=== PATIENT | female | born 1940 | race Caucasian/White ===

== ENCOUNTER → 2016-09-04 | Outpatient (CLI) | payer MEDICARE ==
[~2016-09-04] MED LIST: ASPI-496 PO; CALC1TAB76 PO; CETI1TAB6 PO; CHOL20002 PO; CYAN10005 PO; ESOM40CA PO; FENO54TA17 PO; FLONASE NAS; INSU100I13 SQ; MEGA RED KRILL PO; METF10002 PO; METO-99 PO; MULT-257 PO; OMNIPAQUE 350 MG/ML, 100ML BOTTLE ONE; PIOG15TA9 PO; SAXA5TAB PO; TELM40TA PO; VITAMIN K2 PO
== END | disposition home or self-care (01) ==
LOC: CVU 15:42
PROVIDERS: ATTEND Internal Medicine
DX: C91.10 Chronic lymphocytic leukemia of B-cell type not having achieved remission (principal); R59.1 Generalized enlarged lymph nodes; R16.0 Hepatomegaly, not elsewhere classified
CPT/HCPCS: 71260; 74177; 93306; Q9967

== ENCOUNTER 2016-09-18 10:51 | Day surgery (SDC) | payer MEDICARE ==
[~2016-09-18] VITALS: Ht 148.6 cm; Wt 64.5 kg
[~2016-09-18 10:51] MED LIST changes: -OMNIPAQUE 350 MG/ML, 100ML BOTTLE ONE
[2016-09-18] MEDS ORDERED: LISI-170 PO (11:56)
[2016-09-18] MEDS ORDERED: HCTZ PO (11:56)
[2016-09-18] MEDS ORDERED: SODIUM CHLORIDE 0.9% 1,000 ML IV SCH (11:57)
[2016-09-18 11:58] VITALS: BP 71/58
[2016-09-18] MEDS ORDERED: FENTANYL PF 100 MCG/2ML ONE (13:16)
[2016-09-18] MEDS ORDERED: MIDAZOLAM 1 MG/ML, 5ML ONE (13:16)
[2016-09-18] MEDS ORDERED: OXYcodone IR 5MG TABLET PO PRN (15:00)
== END 2016-09-18 18:40 | disposition home or self-care (01) ==
LOC: OUT 10:51
PROVIDERS: ATTEND Internal Medicine
DX: C91.10 Chronic lymphocytic leukemia of B-cell type not having achieved remission (principal); E11.9 Type 2 diabetes mellitus without complications; I11.9 Hypertensive heart disease without heart failure; G47.33 Obstructive sleep apnea (adult) (pediatric); E66.9 Obesity, unspecified; Z68.29 Body mass index [BMI] 29.0-29.9, adult; E78.5 Hyperlipidemia, unspecified; K21.9 Gastro-esophageal reflux disease without esophagitis; J30.2 Other seasonal allergic rhinitis; Z90.49 Acquired absence of other specified parts of digestive tract; Z90.710 Acquired absence of both cervix and uterus; Z90.79 Acquired absence of other genital organ(s); Z90.722 Acquired absence of ovaries, bilateral; Z98.42 Cataract extraction status, left eye; Z98.41 Cataract extraction status, right eye; Z96.1 Presence of intraocular lens; Z87.891 Personal history of nicotine dependence; Z79.01 Long term (current) use of anticoagulants
CPT/HCPCS: 36415; 47000; 77012; 85610; 88307; J2250; J3010; 99156; 99157

== ENCOUNTER → 2016-10-05 | Outpatient (CLI) | payer MEDICARE ==
[~2016-10-05] MED LIST changes: +HCTZ PO; +LIDOCAINE 1%, 20ML ONE; +LISI-170 PO; +SODIUM BICARBONATE 4.2%, 5ML ONE
== END | disposition home or self-care (01) ==
LOC: RAD 11:49
PROVIDERS: ATTEND Internal Medicine
DX: C91.10 Chronic lymphocytic leukemia of B-cell type not having achieved remission (principal)
CPT/HCPCS: 49083; J3490